=== PATIENT | female | born 1965 | race Caucasian/White ===

== ENCOUNTER → 2017-07-20 13:34 | Outpatient (CLI) | payer MEDICARE ==
[2013-03-25 17:06] VITALS: BMI 27.1
[~2017-07-20 13:34] MED LIST: ATIVAN1 MG PO; BACLOFEN20 M1 OR; IPRAT-ALBUT 0.5-3 ML NEB; LEVAQUIN750 MG PO; LORTAB 5/500 TA1 TA2 OR; NEURONTIN600 MG PO; NORCO 10/325 TA1 TA1 PO; TEGRETOL 100 M100 MG OR; ZOLOFT100 MG PO
== END | disposition home or self-care (01) ==
LOC: D.MAMMO 11:30
DX: Z12.31 Encounter for screening mammogram for malignant neoplasm of breast (principal)